=== PATIENT | female | born 1945 | race Caucasian/White ===

== ENCOUNTER 2017-05-30 19:34 | Emergency (ER) | payer MEDICARE, BC ==
[~2017-05-30] VITALS: Ht 160 cm; Wt 100.0 kg
[2017-05-30 21:08] LABS: ALBUMIN 4.1 g/dL (3.2-5.0); ALKALINE PHOSPHATASE 103 u/l (38-126); ANION GAP 16 (6-22 (CALC)); BILIRUBIN, TOTAL 0.3 mg/dL (0.0-1.4); BUN 23 mg/dL (8-23); BUN/CREATININE RATIO 28 (12-20 (CALC)); CARBON DIOXIDE 28 mmol/l (22-30); CHLORIDE 105 mmol/l (95-108); CREATININE 0.8 mg/dL (0.5-1.0); GFR > 60 ML/MIN (>=60 (CALC)); GFR FOR AFR.AMER. > 60 ML/MIN (>=60 (CALC)); INTERNATIONAL NORMALIZED RATIO 0.9 RATIO (0.7-1.3); POTASSIUM 4.1 mmol/l (3.5-5.1); SGOT/AST 40 u/l (9-36); SGPT/ALT 22 u/l (11-66); SODIUM 145 mmol/l (137-146); TOTAL PROTEIN 7.6 g/dL (6.3-8.2)
[2017-05-30 21:09] LABS: HEMATOCRIT 41.9 % (37.0-47.0); HEMOGLOBIN 13.2 g/dl (12.0-16.0); IMMATURE GRANULOCYTES 0.5 % (0.0-1.0); MEAN CELL VOLUME 96.5 fL CALC (80.0-100.0); MEAN CORPUSCULAR HGB 30.4 pG CALC (26.0-32.0); MEAN CORPUSCULAR HGB CONC 31.5 g/L CALC (32.0-36.0); NEUT# 6.16 thou/uL (2.00-7.15); RED BLOOD COUNT 4.34 mill/uL (4.20-5.60); RED CELL DISTRI WIDTH 13.4 % (11.5-15.5)
[2017-05-30 21:19] LABS: MYOGLOBIN 20 ng/mL (0 - 62)
[2017-05-30 21:23] LABS: URINE BILIRUBIN - DIPSTICK NEGATIVE (NEGATIVE); URINE BLOOD DIPSTICK NEGATIVE (NEGATIVE); URINE CLARITY CLEAR; URINE COLOR YELLOW; URINE GLUCOSE - DIPSTICK NEGATIVE (NEGATIVE); URINE KETONE NEGATIVE (NEGATIVE); URINE LEUK ESTERASE NEGATIVE (NEGATIVE); URINE NITRITE - DIPSTICK NEGATIVE (Negative); URINE PROTEIN - DIPSTICK NEGATIVE (NEG-TRACE); URINE SPECIFIC GRAVITY 1.015; URINE UROBILINOGEN - DIPSTICK 0.2 E.U./dL (0.2)
[2017-05-30 23:54] VITALS: BP 137/60
== END 2017-05-30 23:15 | disposition short-term general hospital (02) ==
LOC: ED 19:34
PROVIDERS: Emergency Medicine
DX: R53.1 Weakness (principal); R20.0 Anesthesia of skin; I10 Essential (primary) hypertension
CPT/HCPCS: J2997